=== PATIENT | female | born 1960 | race Hispanic/Latino ===

== ENCOUNTER 2019-05-14 09:42 | Outpatient (CLI) | payer OTHER ==
--- NOTE | 2019-05-14 10:29 | XRay Report ---
CLINICAL DATA: BACK PAIN TECHNICAL DATA: AP and lateral views lumbar spine. FINDINGS: The bone mineralization is normal. Vertebral body heights are normal. Intervertebral disc spaces are well maintained. Pedicles and spinous processes are normal in alignment. Minimum facet degenerative c hanges L4-5 and L5-S1 SI joints and sacrum are normal. IMPRESSION: Mild degenerative changes as noted Signer Name: Jurgen Henry MD Signed: 05/14/2019 10:24 AM Workstation Name: [id number]
--- NOTE | 2019-05-14 10:40 | XRay Report ---
RIGHT KNEE 2 VIEWS INDICATION / CLINICAL INFORMATION: ARTHRITIS IN KNEES COMPARISON: None available. FINDINGS: BONES / JOINT(S): No acute fracture or subluxation. No significant arthritis. SOFT TISSUES: No significant abnormality. ADDITIONAL FINDINGS: None. LEFT KNEE 2 VIEWS INDICATION / CLINICAL INFORMATION: ARTHRITIS IN KNEES COMPARISON: None available. FINDINGS: BONES / JOINT(S): No acute fracture or subluxation. No significant arthritis. SOFT TISSUES: No significant abnormality. ADDITIONAL FINDINGS: None. Signer Name: Bryant Best MD Signed: 05/14/2019 10:36 AM Workstation Name: [id number]
== END 2019-05-14 09:43 | disposition home or self-care (01) ==
LOC: XRAY 09:42
PROVIDERS: ATTEND Internal Medicine
DX: M47.817 Spondylosis without myelopathy or radiculopathy, lumbosacral region (principal); M13.869 Other specified arthritis, unspecified knee; F41.8 Other specified anxiety disorders; F31.9 Bipolar disorder, unspecified
CPT/HCPCS: 72100